=== PATIENT | male | born 2000 | race Caucasian/White ===

== ENCOUNTER 2020-01-12 17:11 | Emergency (ER) | payer SELFPAY ==
[~2020-01-12] VITALS: Ht 175.3 cm; Wt 74.8 kg
--- NOTE | 2020-01-12 17:14 | NUR ---
BIB [facility] S/P OVERDOSE ON HEROIN. TO ER BED 10, PATIENT DROWSY BUT VERBALLY RESPONSIVE. AOX3. BREATHING EVEN AND UNLABORED. VITAL SIGNS STABLE. CHANGED TO HOSP GOWN, WARM BLANKET PROVIDED, KEPT WARM AND COMFORTABLE. DR REYES AT BEDSIDE
--- NOTE | 2020-01-12 18:27 | NUR ---
PATIENT IN BED ASLEEP, EASILY AROUSABLE BY VOICE. HOOKED TO MONITOR, VSS. KEPT SAFE AND COMFORTABLE. WILL CONTINUE TO MONITOR ACCORDINGLY
--- NOTE | 2020-01-12 19:16 | NUR ---
REPORT GIVEN TO JONATHON MANZANARES FOR [facility]
--- NOTE | 2020-01-12 19:38 | NUR ---
TOOK OVER PT CARE. PT RESPONSIVE AND ALERT. VSS. ON MONITOR AND PULSE OX. PROVIDED WITH BLANKETS. WILL CONTINUE TO MONITOR.
--- NOTE | 2020-01-12 20:37 | NUR ---
Patient is resting comfortably in bed. Easily aroused. VSS.
--- NOTE | 2020-01-12 23:20 | NUR ---
Patient discharged to home in stable condition. Written and verbal after care instructions given. Patient verbalizes understanding of instruction.
[2020-01-12 23:21] VITALS: BP 134/77
== END 2020-01-12 23:21 | disposition home or self-care (01) ==
LOC: ER 17:12
DX: T40.1X1A Poisoning by heroin, accidental (unintentional), initial encounter (principal); R41.82 Altered mental status, unspecified; Y92.89 Other specified places as the place of occurrence of the external cause